=== PATIENT | male | born 1990 | race Asian ===

== ENCOUNTER 2017-06-26 21:50 | Emergency (ER) | payer OTHER ==
[~2017-06-26] VITALS: Ht 152.4 cm; Wt 86.4 kg
[2017-06-27] MEDS ORDERED: HYDROCODONE/ACETAMINOPHEN 5-325 MG TABLET PO ONE (00:45)
[2017-06-27] MEDS ORDERED: KETOROLAC TROMETHAMINE 60 MG/2 ML VIAL IM ONE (00:45)
[2017-06-27] MEDS ORDERED: METHOCARBAMOL 750 MG TABLET PO ONE (00:45)
[2017-06-27 02:00] VITALS: BP 124/78
== END 2017-06-27 02:16 | disposition home or self-care (01) ==
LOC: EMS 21:51
DX: M54.41 Lumbago with sciatica, right side (principal); F17.210 Nicotine dependence, cigarettes, uncomplicated
CPT/HCPCS: 96372; 99283; 99406; J1885

== ENCOUNTER → 2019-06-27 | Outpatient (CLI) | payer OTHER | END | disposition home or self-care (01) | LOC: RADPV 09:09 | PROVIDERS: ATTEND Orthopaedic Surgery | DX: M19.90 Unspecified osteoarthritis, unspecified site (principal) | CPT/HCPCS: 73521 ==